=== PATIENT | female | born 1985 | race Caucasian/White ===

== ENCOUNTER → 2019-08-03 10:01 | Outpatient (CLI) | payer OTHER, SELFPAY ==
[2019-08-03 10:56] LABS: Hemoglobin 14.1 g/dL (12.0-16.0); Mean Corpuscular HGB Conc 32.8 % (30-36); Mean Corpuscular Hemoglobin 26.9 PG (26-34); Platelet Count 262 X10^3/uL (150-400); Red Blood Cell Count 5.24 X10^6/uL (4.0-5.2); Red Cell Distribution Width 13.9 % (11.6-14.8); White Blood Cell Count 8.6 X10^3/uL (4.5-11.0)
[2019-08-03 11:07] LABS: Hemoglobin A1C% w Est Avg Glu 5.4 % (4.0-6.0)
[2019-08-03 11:24] LABS: Alanine Aminotransferase 18 IU/L (<35); Albumin 4.7 g/dL (3.5-5.0); Albumin Globulin Ratio 1.9 (1.0-2.8); Alkaline Phosphatase 38 U/L (38-126); Aspartate Aminotransferase 29 IU/L (14-36); Bilirubin Total 0.8 mg/dL (0.2-1.3); Blood Urea Nitrogen 12 mg/dL (7-17); Calcium 10.2 mg/dL (8.4-10.2); Carbon Dioxide 29 mmol/L (22-32); Chloride 104 mmol/L (98-107); Cholesterol 174 mg/dL (140-199); Estimated Glomerular Filt Rate > 60.0 mL/min (>60); Globulin 2.5 g/dL (1.7-4.1); Glucose 93 mg/dL (70-100); HDL Cholesterol 63 mg/dL (40-60); HEMOLYSIS < 15 (0-50); LDL Cholesterol Calculated 88 mg/dL (<100); Potassium 5.2 mmol/L (3.4-5.1); Sodium 142 mmol/L (137-145); Total Protein 7.2 g/dL (6.3-8.2); Triglycerides 114 mg/dL (35-150)
[2019-08-03 11:51] LABS: TSH w/ Reflex to FT4 1.62 uIU/mL (0.47-4.68)
== END ==
PROVIDERS: PCP Family Medicine; Visit Provider Family Medicine
DX: E16.2 Hypoglycemia, unspecified (principal); R25.1 Tremor, unspecified
CPT/HCPCS: 36415; 80053; 80061; 83036; 84443; 85027

== ENCOUNTER → 2022-08-01 11:13 | Outpatient (CLI) | payer BC, SELFPAY ==
[2022-08-01 12:07] LABS: Appearance Urine UA CLEAR; Bilirubin Urine UA NEGATIVE (NEGATIVE); Color Urine UA YELLOW; Glucose Urine UA NEGATIVE (Negative); Ketones Urine UA NEGATIVE (NEGATIVE); Leukocyte Esterase Urine UA NEGATIVE (NEGATIVE); Nitrite Urine UA NEGATIVE (Negative); Occult Blood Urine UA TRACE-INTACT (Negative); Protein Urine UA NEGATIVE (Negative); Specific Gravity Urine UA 1.025 (1.000-1.035); Urobilinogen Urine UA 0.2 E.U./dL (0.2)
[2022-08-01 12:17] LABS: Bacteria Urine None Seen; Culture Indicated Urine Cult Not Indicated; RBC Urine 1-5/HPF (0-5/HPF); WBC Urine None Seen (0-5/HPF)
== END ==
PROVIDERS: PCP Family Medicine; Referring Provider Physician Assistant; Visit Provider Physician Assistant
DX: R10.9 Unspecified abdominal pain (principal)
CPT/HCPCS: 81001

== ENCOUNTER → 2022-08-23 16:08 | Outpatient (CLI) | payer BC, SELFPAY ==
--- NOTE | 2022-08-23 16:09 | DI.US.S_ITS ---
PROCEDURE: US RENAL COMPLETE INDICATIONS: LEFT FLANK PAIN TECHNIQUE: Real-time scanning was performed of the kidneys and bladder, with image documentation. COMPARISON: [facility], CT, CT KUB, 08/08/2022, 16:31. FINDINGS: Kidneys: Kidneys are normal in size. Right kidney measures 11.7 cm long; left kidney measures 10.4 cm long. Right renal cortical thickness is 1.6 cm; left renal cortical thickness is 1.8 cm. Renal cortical echotexture is normal. No hydronephrosis or nephrolithiasis. No suspicious solid mass lesions. Bladder: Pre-void bladder volume is 104 mL. Post-void residual is 0 mL. Pre-void images demonstrate no intraluminal masses or stones. On pre-void images, bilateral ureteral jets are noted with color Doppler interrogation. (Of note, ureteral jets may not be detectable in up to 25% of cases due to insufficient differences in specific gravity between ureteral and bladder urine). Miscellaneous: No free pelvic fluid. IMPRESSION: Normal appearance of the kidneys and no source for left flank pain identified. Dictated by: Cruzito Rojas [facility] Interpreted: Kathy Lepe MD on 08/23/2022 at 16:32 Transcribed by: JULIO C on 08/23/2022 at 16:32 Approved by: Kathy Lepe M.D. on 08/23/2022 at 16:35
== END ==
PROVIDERS: PCP Family Medicine; Referring Provider Physician Assistant; Visit Provider Physician Assistant
DX: R10.9 Unspecified abdominal pain (principal)
CPT/HCPCS: 76770

== ENCOUNTER → 2023-09-25 14:13 | Outpatient (CLI) | payer BC, SELFPAY | PROVIDERS: PCP Family Medicine; Visit Provider Physician Assistant | DX: N89.8 Other specified noninflammatory disorders of vagina (principal) | CPT/HCPCS: 87210 ==

== ENCOUNTER → 2023-10-02 09:09 | Outpatient (CLI) | payer BC, SELFPAY ==
--- NOTE | 2023-10-02 09:11 | DI.US.S_ITS ---
PROCEDURE: US ABDOMEN LIMITED INDICATIONS: EPIGASTRIC PAIN TECHNIQUE: Real-time scanning was performed of the abdominal and retroperitoneal organs, with image documentation. COMPARISON: None. FINDINGS: Liver: Liver is normal in size and homogeneous in echotexture. Gallbladder: Contracted. Biliary ducts: Intrahepatic bile ducts are non-dilated. Extrahepatic bile duct caliber measures 2.8 mm. Normal is 6-7 mm or less in diameter, or 10 mm or less post-cholecystectomy. Pancreas: Visualized portions of the pancreas are sonographically normal. Miscellaneous: Prominent bowel in the left upper quadrant, with perceived wall thickening of up to 9 mm. IMPRESSION: Prominent bowel in the left upper quadrant, with perceived wall thickening of up to 9 mm. In the setting of epigastric pain, consider CT for complete characterization. Dictated by: Bennie Regalado M.D. on 10/02/2023 at 12:34 Approved by: Bennie Regalado M.D. on 10/02/2023 at 12:38
[2023-10-02 09:25] LABS: Add Manual Diff / Slide Review NO; Basophils Absolute Auto 100 /uL (0-100); Basophils Percent Auto 1.1 % (0-2); Eosinophils Absolute Auto 400 /uL (0-450); Hematocrit 42.2 % (36-46); Hemoglobin 13.7 g/dL (12.0-16.0); Lymphocytes Absolute Auto 1500 /uL (1100-4500); Lymphocytes Percent Auto 21.4 % (25-40); Mean Corpuscular HGB Conc 32.6 % (30-36); Mean Corpuscular Hemoglobin 26.4 PG (26-34); Monocytes Absolute Auto 400 /uL (0-900); Monocytes Percent Auto 5.8 % (3-14); Neutrophils Absolute Auto 4700 /uL (1500-7000); Neutrophils Percent Auto 66.7 % (50-75); Platelet Count 293 X10^3/uL (150-400); Red Cell Distribution Width 14.8 % (11.6-14.8); White Blood Cell Count 7.1 X10^3/uL (4.5-11.0)
[2023-10-02 09:42] LABS: Alanine Aminotransferase 20 IU/L (<35); Albumin 4.2 g/dL (3.5-5.0); Albumin Globulin Ratio 1.4 (1.0-2.8); Alkaline Phosphatase 35 U/L (38-126); Aspartate Aminotransferase 27 IU/L (14-36); BUN Creatinine Ratio 16.3 (6-22); Bilirubin Total 0.6 mg/dL (0.2-1.3); Blood Urea Nitrogen 13 mg/dL (7-17); Calcium 9.2 mg/dL (8.4-10.2); Carbon Dioxide 27 mmol/L (22-32); Chloride 105 mmol/L (98-107); Cholesterol 179 mg/dL (140-199); Estimated Glomerular Filt Rate > 60 mL/min (>60); Globulin 2.9 g/dL (1.7-4.1); Glucose 93 mg/dL (70-100); HDL Cholesterol 67 mg/dL (40-60); HEMOLYSIS < 15 (0-50); LDL Cholesterol Calculated 94 mg/dL (<100); Potassium 4.2 mmol/L (3.4-5.1); Sodium 138 mmol/L (137-145); Total Protein 7.1 g/dL (6.3-8.2); Triglycerides 92 mg/dL (35-150)
[2023-10-02 10:08] LABS: TSH w/ Reflex to FT4 1.24 uIU/mL (0.47-4.68)
== END ==
PROVIDERS: Physician Assistant; PCP Family Medicine; Referring Provider Family Medicine; Visit Provider Family Medicine
DX: K80.20 Calculus of gallbladder without cholecystitis without obstruction (principal); G47.9 Sleep disorder, unspecified; Z13.220 Encounter for screening for lipoid disorders; Z13.6 Encounter for screening for cardiovascular disorders; Z13.0 Encounter for screening for diseases of the blood and blood-forming organs and certain disorders involving the immune mechanism; Z83.438 Family history of other disorder of lipoprotein metabolism and other lipidemia; Z83.49 Family history of other endocrine, nutritional and metabolic diseases; R53.83 Other fatigue
CPT/HCPCS: 36415; 76705; 80053; 80061; 84443; 85025

== ENCOUNTER → 2023-10-08 09:02 | Outpatient (CLI) | payer BC, SELFPAY ==
--- NOTE | 2023-10-08 09:03 | DI.CT.S_ITS ---
PROCEDURE: CT ABDOMEN PELVIS W CON INDICATIONS: abnormal abdominal ultrasound TECHNIQUE: After the administration of intravenous contrast, axial sections acquired from the lung bases to the pubic symphysis. Coronal and sagittal reformats were performed. For radiation dose reduction, the following was used: automated exposure control, adjustment of mA and/or kV according to patient size. COMPARISON: [facility], , US ABDOMEN LIMITED, 10/02/2023, 9:21. FINDINGS: Image quality: Diagnostic. Lower Chest: No significant findings. ABDOMEN: Liver: No solid mass. Segment 6 hepatic cyst. Gallbladder: Contracted. Biliary ducts: No biliary dilation. Pancreas: No ductal dilation. Spleen: Size is within normal limits. Adrenal Glands: No adrenal nodules. Kidneys and Ureters: No hydronephrosis. No solid mass. No complex renal cystic lesion which requires follow up. Stomach and Bowel: Normal colonic caliber, without significant wall thickening. Segmented appearance of the stomach Peritoneum: No abnormal intraperitoneal fluid. No free air. Ventral Wall: No hernia. Abdominal Nodes: No retroperitoneal or mesenteric adenopathy by size criteria. Vessels: Aorta and inferior vena cava are normal in size. PELVIS: Pelvic Organs: Retroverted uterus. Bladder: Unremarkable. Pelvic Nodes: No enlarged lymph nodes. Miscellaneous: No inguinal hernias are seen. Bones: No aggressive osseous abnormality. IMPRESSION: Segmented appearance of the stomach, likely corresponding to the abnormal bowel seen in the left upper quadrant on comparison ultrasound. Given epigastric pain and abnormal appearance of the stomach, underlying mass is not entirely excluded (although not visualized). Consider endoscopic evaluation. Dictated by: Bennie Regalado M.D. on 10/08/2023 at 11:37 Approved by: Bennie Regalado M.D. on 10/08/2023 at 11:43
== END ==
PROVIDERS: PCP Family Medicine; Referring Provider Family Medicine; Visit Provider Family Medicine
DX: R19.8 Other specified symptoms and signs involving the digestive system and abdomen (principal); R10.13 Epigastric pain
CPT/HCPCS: 74177; Q9967

== ENCOUNTER 2025-01-29 07:25 | Day surgery (SDC) | payer OTHER, SELFPAY ==
[2025-01-21 13:24] VITALS: BMI 20.3
[2025-01-29] VITALS (7 sets, daily range): BP systolic 107–126; BP diastolic 58–75; PULSE 60–92; RESP 16; TEMP 36.1–36.3; O2SAT 98–100; BMI 20.3
[2025-01-29] MEDS: LACTATED RINGERS 1,000 ML 42 ML IV (08:10)
[2025-01-29] MEDS: SCOPOLAMINE 1 PATCH TOP (08:10)
--- NOTE | 2025-01-29 08:29 | PM.PREOP ---
Pre-operative Note COVID-19 COVID-19 status: Not tested Interval Note History & Physical reviewed/Exam performed by Physician: Yes Changes to H&P: No
--- NOTE | 2025-01-29 08:52 | SUR.OPER ---
Lithotomy on padded OR bed, head on pillow, arms secured on padded arm boards at <90 degrees abduction. Legs secured in padded yellow fins stirrups.
[2025-01-29] MEDS: BUPIVACAINE 0.25% W/ EPI (PF) 10 ML VIAL 20 ML INJ (09:10)
--- NOTE | 2025-01-29 09:21 | P.OP_ITS ---
Operative Date/Time/Diagnoses Date of procedure: 01/29/25 Time of procedure: 08:45 Pre-op diagnosis: Abnormal uterine bleeding Endometrial polyps Right vulvar skin tag Post-op diagnosis: same Procedure & Clinicians Procedure: Procedures Operation Date: 01/29/25 08:45 Actual Procedure Side Surgeon p Hysteroscopy with polypectomy, D&C, insertion of mirena IUD, vulvar skin tag removal Hayder Soria MD Indications: Jalyn is a 39-year-old , LMP 11/20/2024, who presents with a 5 year history of increasingly heavy menses. She experienced menarche at age 12 and has had regular predictable periods throughout her reproductive life. Starting about 5 years ago however her periods have become increasingly heavy and currently last at least 5-6 days with 3-4 those days associated with passage of clots, flooding, and accidents/overflows. Recent pelvic ultrasound performed 11/03/2024 at [facility] shows the uterus to be 10.4 cm x 7.0 cm x 5.9 cm with a total volume of 225.3 cc. The uterus is described as normal. The position is retroverted. Myometrium is described as normal. The endometrium however has areas of ill-defined borders as well as multiple echogenic lesions within the endometrium likely representing multiple polyps. A vascular stalk is seen extending into the largest polyp which measures 2.1 cm. Endometrial thickness in total measures 15 mm. Cervix is described as normal. The right ovary measures 3.1 x 2.4 x 2.6 cm with a total volume of 10.2 cc. The left ova ry is 3.7 x 1.5 x 2.0 cm with a total volume of 5.9 cc. There is no fluid in the posterior cul-de-sac. Patient's Paps have always been normal and her Pap is current. The nature of endometrial polyps as well as they are removal in causing abnormal uterine bleeding was discussed along with options for managing both the polyps and her heavy menses. After discussion regarding all options, will proceed with hysteroscopic resection of endometrial polyps, dilation and curettage of the uterus, and insertion of a Mirena IUD to suppress menses following polypectomy and D&C. In addition she has a small right-sided vulvar skin tag that she wishes to have removed at the time of surgery. She presents today for her scheduled surgery. Surgeon: Hayder Soria Anesthesia Type: General Operative Notes Findings: The uterus is retroverted and approximately 6-8 weeks in size. The uterus sounds to 10 cm. Within the endometrial cavity are several benign-appearing, smooth surface polyps, all of which were removed during the course of her surgery. There was also a 2 mm skin tag on the skin of the right labia majora which was also removed per patient request. Closure Type: primary Specimen(s): endometrial curettings, endometrial polyp and other (Endocervical curettings, vulvar lesion excision) Estimated blood loss (mL): 10 Blood products transfused: none Procedure in detail: With the patient under general LMA in the modified dorsal lithotomy position, the perineum, vagina, and lower abdomen were prepped and draped in the usual fashion for hysteroscopy with endometrial ablation. A pre-surgical safety time- out was then taken in accordance with [facility] OR protocols. A bivalve speculum was inserted in the vagina and the cervix visualized. The anterior lip of the cervix was grasped with a single-tooth tenaculum and the endocervical canal was then dilated to 6 mm diameter. Hysteroscope was placed through the endocervical canal into the endometrial cavity and the cavity was visualized. A MyoSure Lite device was used to remove all polyps seen within the endometrial cavity. Both tubal ostia were visualized following removal of the polyps. The hysteroscope was then withdrawn and a fractional dilation and curettage was accomplished with separate pathologic specimen submitted for the endometrial and endocervical curettings. The uterine cavity was then sounded to 10 cm and a Mirena IUD was inserted into the endometrial cavity with the Mirena at insertion device and released in the usual manner. The strings were trimmed to 3 cm in length. The tenaculum was then removed from the anterior lip of the cervix and a small amount of bleeding was noted on the right side which was easily controlled with an Allis clamp. Visualization of the small lesion the patient's right labia majora was performed and tissues underneath the lesion infiltrated with 0.25% Marcaine with epinephrine. The lesion was then grasped with an Adson forceps and excised with a number 15 blade. The resulting defect was then closed with a single 3-0 Vicryl [id number] stitch. The patient was then awakened from anesthesia and transferred to the recovery room for a period of observation and recovery after having tolerated the procedure well. Complications: none Post-operative Condition: stable Disposition: PACU Plan for aftercare: Routine postoperative care with follow-up planned for 2 weeks after surgery.
[2025-01-29] MEDS: ACETAMINOPHEN IV 1,000 MG/100 ML VIAL 400 MG IV (09:34)
[2025-01-29] MEDS: ONDANSETRON 4 MG/2 ML INJ IV (09:49)
[2025-01-29] MEDS: OXYCODONE IR 5 MG TABLET PO (09:49)
[2025-01-29] MEDS: BENZOCAINE/MENTHOL 1 LOZ PKT 1 EACH PO (09:59)
== END 2025-01-29 10:23 | disposition home or self-care (01) ==
PROVIDERS: PCP Family Medicine; Referring Provider Obstetrics & Gynecology; Visit Provider Obstetrics & Gynecology
PROC: 0UDB8ZZ Extraction of Endometrium, Via Natural or Artificial Opening Endoscopic (ICD-10-PCS; CPT 58558; principal; 2025-01-29 08:45)
DX: N92.0 Excessive and frequent menstruation with regular cycle (principal); N84.0 Polyp of corpus uteri; N90.89 Other specified noninflammatory disorders of vulva and perineum
CPT/HCPCS: 58558; 11200; 58300; 81025; C1713; J0131; J1100; J1885; J2250; J2405; J2704; J3010; J7298

== ENCOUNTER → 2025-02-28 09:32 | Outpatient (CLI) | payer OTHER, SELFPAY | PROVIDERS: PCP Family Medicine; Visit Provider Nurse Practitioner Family | DX: R30.0 Dysuria (principal) | CPT/HCPCS: 87077; 87086; 87186; 87210 ==

== ENCOUNTER 2025-07-24 01:05 | Emergency (ER) | payer OTHER, SELFPAY ==
[2025-07-24 01:22] VITALS: BP 141/78; PULSE 62; RESP 18; TEMP 37.4; O2SAT 96; BMI 20.3
--- NOTE | 2025-07-24 01:22 | ED_ITS ---
HPI - Skin/Abscess/Foreign Bdy
--- NOTE | 2025-07-24 01:22 | ED.SKABFB ---
HPI - Skin/Abscess/Foreign Bdy General Chief complaint: Skin/Abscess/Foreign Body Stated complaint: Food stuck in esophagus x5hrs Time Seen by Provider: 07/24/25 01:20 History of Present Illness HPI narrative: 40-year-old female with a history of esophageal food bolus comes into the ED from home for esophageal food bolus. States that she was eating steak few hours prior to arrival states that she had her typical symptoms of food bolus, she states that she tried her home remedies such as soda but did not help. She has been having to spit but otherwise protecting airway no voice changes no stridor no trismus she states that she has had EGDs in the past and states that she has no ?pressure which is what causes these issues. She states that she follows with Dr. Hernandez at [facility] for this. Related Data Home Medications ?Medication ?Instructions ?Recorded ?Confirmed estradiol 0.1 mg/24 hr semiweekly 1 patch transdermal WEEKLY 12/16/24 02/28/25 transdermal patch (Rufina) testosterone 1 % (25 mg/2.5 gram) 1 packet transdermal 12/16/24 02/28/25 transdermal gel packet lisdexamfetamine 20 mg capsule 20 mg PO DAILY 01/29/25 02/28/25 Previous Rx's ?Medication ?Instructions ?Recorded cefdinir 300 mg capsule 300 mg PO BID #10 caps 02/28/25 phenazopyridine 200 mg tablet 200 mg PO TID 6 doses #6 tabs 02/28/25 (Pyridium) Allergies Allergy/AdvReac Type Severity Reaction Status Date / Time Sulfa (Sulfonamide Allergy Mild UPSET Verified 07/24/25 01:22 Antibiotics) (SULFA STOMACH (SULFONAMIDE ANTIBIOTICS)) valacyclovir (VALACYCLOVIR) Allergy Mild MIGRAINE Verified 07/24/25 01:22 Review of Systems Review of Systems Narrative: General: Denies fever, chills, weight loss HEENT: Denies headache, eye drainage, eye irritation, head trauma, sore throat, voice change Cardiovascular: Denies any chest pain, palpitations, tachycardia Respiratory: Denies any shortness of breath, cough, wheeze, stridor GI/: Denies any abdominal pain, nausea, vomiting, diarrhea, bright red blood per rectum, melanotic stools, urinary frequency, urinary retention, dysuria, hematuria MSK: Denies any joint pain, muscle pains, swelling Skin: Denies any rashes, lesions, discoloration Neuro: Denies any headache, lightheadedness, dizziness, fainting, weakness Psych: Denies SI/HI Patient History Medical History (Updated 07/24/25 @ 02:15 by Marcelino Ann DO) Dysphagia Allergies (~2008) ADHD Anemia (~2020) Painful menstrual periods Irregular menstrual cycle (~2019) Low testosterone (~2022) care and examination (06/06/15) Surgical History (Updated 01/21/25 @ 13:30 by Arelis Perdomo RN) Hx of umbilical hernia repair Anesthesia History of esophagogastroduodenoscopy (EGD) (~2023) History of colonoscopy (~2023) History of cholecystectomy (~11/2023) Status post tonsillectomy and adenoidectomy (~2003) Status post dilation and curettage (~2013) Social History household members: spouse alcohol intake: current Exam Initial Vital Signs Initial Vital Signs: Vital Signs Temperature 99.3 F 07/24/25 01:22 Pulse Rate 62 07/24/25 01:22 Respiratory Rate 18 07/24/25 01:22 Blood Pressure 141/78 H 07/24/25 01:22 Pulse Oximetry 96 07/24/25 01:22 Oxygen Delivery Method Room Air 07/24/25 01:22 Course Orders Ordered: Discontinued Medications Glucagon (Glucagon,Human Recombinant 1 Mg/Ml Vial) 1 mg IV NOW ONE Stop: 07/24/25 01:24 Last Admin: 07/24/25 01:32 Dose: 1 mg Ondansetron HCl (Ondansetron 4 Mg/2 Ml Inj) 4 mg IV NOW ONE Stop: 07/24/25 01:24 Last Admin: 07/24/25 01:32 Dose: 4 mg Vital Signs Vital signs: Vital Signs - 8 hr 07/24/25 01:22 Temperature 99.3 F Pulse Rate 62 Respiratory Rate 18 Blood Pressure 141/78 H Pulse Oximetry 96 Oxygen Delivery Method Room Air MDM - Skin/Abscess/Foreign Bdy MDM Narrative Medical decision making narrative: 40-year-old female with a past medical history of esophageal food boluses comes into the ED from home for evaluation of food bolus. She states that she was eating steak a few hours ago and felt her typical symptoms of food bolus did try her home remedies such as sodas without relief so came into the ED. She states that she has been having to spit but otherwise no voice changes no stridor no trismus no other symptoms. States that she has had EGDs in the past follows with Dr. Perez of GI at [facility]. Attempted [place] heel strike and 1 of glucagon without any resolution of symptoms. I did have a discussion with Dr. Perez does agree to take patient to OR for food bolus, I was informed that patient would be wait listed until 7:00 a.m. for ER to ER transfer given Dr. Perez unable to perform this procedure until after 7:00 a.m.. After a lengthy conversation with the patient she states that she would feel more comfortable just taking herself to the emergency room by herself. Patient hemodynamically stable, not requiring any supplemental oxygen she feels comfortable going to [facility] herself, significant other at bedside we will take her. Therefore patient will be discharged and instructed to go to [facility] for definitive treatment of her food bolus Discharge Plan Departure Patient Disposition: Home Clinical Impression: Bolus impaction of digestive tract Instructions: Steakhouse Syndrome Prescriptions: No Action phenazopyridine [Pyridium] 200 mg tablet 200 mg PO TID 0 Days Qty: 6 0RF cefdinir 300 mg capsule 300 mg PO BID Qty: 10 0RF estradiol [Rufina] 0.1 mg/24 hr patch semiweekly 1 patch transdermal WEEKLY Rx Instructions: twice a week testosterone 1 % (25 mg/2.5gram) gel in packet 1 packet transdermal Rx Instructions: 5-7 days lisdexamfetamine 20 mg capsule 20 mg PO DAILY Referrals: Mack Espinoza MD [Primary Care Provider, Family Practice] Stand Alone Forms: Patient Portal/API
--- NOTE | 2025-07-24 01:26 | PC.NURSE ---
States has steak stuck in her esophagus. unable to manage saliva.
[2025-07-24] MEDS: ONDANSETRON 4 MG/2 ML INJ IV (01:32)
[2025-07-24] MEDS: GLUCAGON,HUMAN RECOMBINANT 1 MG/ML VIAL IV (01:32)
--- NOTE | 2025-07-24 01:38 | PC.NURSE ---
Attempted glucagon with soda. Pt was not able to pass the food bolus. Provider aware.
== END 2025-07-24 02:36 | disposition home or self-care (01) ==
PROVIDERS: Emergency Provider Student in an Organized Health Care Education/Training Program; PCP Family Medicine
DX: T18.128A Food in esophagus causing other injury, initial encounter (principal)
CPT/HCPCS: 36415; 96374; 96375; 99284; J1610; J2405

== ENCOUNTER → 2025-08-27 10:50 | Outpatient (CLI) | payer OTHER, SELFPAY ==
[2025-08-27 11:49] LABS: COVID-19 CEPHEID 4-PLEX PCR Negative (Negative); Influenza A - CEPHEID Flu A NEGATIVE (NEGATIVE); Influenza B - CEPHEID Flu B NEGATIVE (NEGATIVE)
== END ==
PROVIDERS: PCP Family Medicine; Visit Provider Nurse Practitioner Family
DX: J02.9 Acute pharyngitis, unspecified (principal); R05.1 Acute cough
CPT/HCPCS: 87070; 87637